=== PATIENT | female | born 1985 | race Caucasian/White ===

== ENCOUNTER 2019-02-08 21:08 | Emergency (ER) | payer BC, OTHER ==
[~2019-02-08 21:08] MED LIST: PNV91TAB3 PO; RANI-662 PO
[2019-02-08 21:45] LABS: BASOPHILS % (AUTO) 1.1 % (0.0-5.0); EOSINOPHILS % (AUTO) 5.5 % (0.0-8.0); HEMATOCRIT 35.7 % (36-48); LYMPHOCYTES % (AUTO) 25.3 % (21.0-51.0); MEAN CORPUSCULAR HEMOGLOBIN 30.5 pg (27.0-33.0); MEAN CORPUSCULAR HGB CONC 34.1 g/dL (32.0-36.0); MEAN CORPUSCULAR VOLUME 89.4 fL (79-99); MONOCYTES % (AUTO) 8.5 % (3.0-13.0); NEUTROPHILS % (AUTO) 59.6 % (40.0-77.0); PLATELET COUNT (AUTO) 197 K/uL (130-400); RED BLOOD CELL COUNT(AUTO) 3.99 MIL/uL (4.00-5.50); WHITE BLOOD COUNT (AUTO) 6.9 K/uL (4.8-10.8)
[2019-02-08 21:49] LABS: APPEARANCE,URINE Clear (CLEAR); BILIRUBIN,URINE Negative (NEGATIVE); COLOR,URINE Yellow (YELLOW); GLUCOSE, URINE (UA) Negative (NEGATIVE); KETONES,URINE Negative (NEGATIVE); LEUKOCYTE ESTERASE ,URINE Negative (NEGATIVE); NITRATE,URINE Negative (NEGATIVE); OCCULT BLOOD,URINE Moderate (NEGATIVE); PROTEIN,URINE Negative (NEGATIVE)
[2019-02-08 21:59] LABS: BACTERIA,URINE Few /HPF (None Seen); WBC,URINE 0-1 /HPF (0-1)
== END 2019-02-08 23:41 | disposition home or self-care (01) ==
LOC: EDH 21:08
DX: O20.0 Threatened abortion (principal); Z3A.01 Less than 8 weeks gestation of pregnancy
CPT/HCPCS: 36415; 76801; 81001; 84702; 85025; 86900; 86901

== ENCOUNTER → 2023-10-21 | Outpatient (CLI) | payer OTHER | END | disposition home or self-care (01) | LOC: RAH 13:38 | PROVIDERS: ATTEND Internal Medicine | DX: M47.22 Other spondylosis with radiculopathy, cervical region (principal); M50.123 Cervical disc disorder at C6-C7 level with radiculopathy | CPT/HCPCS: 72141 ==

== ENCOUNTER → 2023-11-17 | Outpatient (CLI) | payer OTHER | END | disposition home or self-care (01) | LOC: RAH 10:01 | PROVIDERS: ATTEND Specialist | DX: R10.2 Pelvic and perineal pain (principal) | CPT/HCPCS: 76830; 76856 ==

== ENCOUNTER → 2024-02-11 | Outpatient (CLI) | payer OTHER | END | disposition home or self-care (01) | LOC: RAH 13:33 | PROVIDERS: ATTEND Internal Medicine | DX: R10.2 Pelvic and perineal pain (principal) | CPT/HCPCS: 74176 ==

== ENCOUNTER → 2025-05-11 | Outpatient (CLI) | payer OTHER ==
--- NOTE | 2025-05-12 06:26 | HMCIMG ---
EXAMINATION: NONCONTRAST MRI OF THE RIGHT SHOULDER. CLINICAL HISTORY: Right shoulder pain. COMPARISON: None. TECHNIQUE: Multiplanar, multisequence MR images of the right shoulder are submitted. FINDINGS: There is type I acromion with no subacromial spur. The coracoclavicular ligament is intact. The acromioclavicular joint is normal. No periosseous synovial thickening. There is no subacromial-subdeltoid bursitis. The peritendinous soft tissues are normal. The supraspinatus tendon demonstrates mild insertional tendinosis without tear. The subscapularis, infraspinatus, and teres minor tendons are intact without evidence of tendinopathy or tear. The musculature of the rotator cuff demonstrates normal bulk and signal. The long head of the biceps tendon is normal in course and morphology. There is normal bone marrow signal within the shoulder girdle without fracture, avascular necrosis, or osteomyelitis. Attenuated anterior superior labrum with thickened medial glenohumeral ligament, concerning for [place] complex. There is superior labral tear with biceps labral junction fraying. The glenohumeral joint is intact. The soft tissues are normal. IMPRESSION: Superior labral tear with biceps labral junction fraying. Attenuated anterior superior labrum with thickened medial glenohumeral ligament, concerning for [place] complex. Mild supraspinatus tendinosis. No acute findings. /[place]
== END | disposition home or self-care (01) ==
LOC: RAH 10:24
PROVIDERS: ATTEND Internal Medicine
DX: S43.431A Superior glenoid labrum lesion of right shoulder, initial encounter (principal); M25.511 Pain in right shoulder; M67.813 Other specified disorders of tendon, right shoulder; X58.XXXA Exposure to other specified factors, initial encounter; Y93.89 Activity, other specified; Y92.89 Other specified places as the place of occurrence of the external cause; Y99.8 Other external cause status
CPT/HCPCS: 73221